=== PATIENT | male | born 1945 | race Caucasian/White ===

== ENCOUNTER 2017-03-24 19:37 | Emergency (ER) | payer MEDICARE ==
[~2017-03-24] VITALS: Ht 154.9 cm; Wt 65.9 kg
[~2017-03-24 19:37] MED LIST: GLBR5T PO; LISI40TA PO; METF10002 PO
[2017-03-24 19:53] VITALS: BP 159/87; PULSE 93; RESP 20; O2SAT 97
--- NOTE | 2017-03-24 20:45 | DRSVH ---
PROCEDURE: X-RAY LEFT KNEE, THREE VIEWS ([id number]) INDICATIONS: glf 3 weeks ago TECHNIQUE: 4 views of the knee were acquired. COMPARISON: [facility], , KNEE 3VW (LT), 11/05/2008, 19:56. FINDINGS: Bones: No fractures or dislocations. No suspicious bony lesions. Osteophyte in tibial tubercle. Soft tissues: No joint effusion. No suspicious soft tissue calcifications. IMPRESSION: No fracture or dislocation. Dictated by: Noam Mendiola M.D. on 03/24/2017 at 20:43 Approved by: Noam Mendiola M.D. on 03/24/2017 at 20:44
--- NOTE | 2017-03-24 22:41 | ED.REPORT ---
HPI-Extremity Problem Lower Date of Service Mar 24, 2017 ED Provider: Dr. Lee 71 y/o male on Aspirin and with a hx of Charcot foot, type 2 DM, hypertension and hyperlipidemia presents to the ED complaining of left foot injury, onset 3 weeks ago. His pain is primarily around the ankle. The pt fell off his scooter onto the grass and twisted both his knee and foot at the same time. His scooter then fell on the pt's left foot. He denies any change in sensation from baseline in the left foot. Nursing Notes Stated Complaint: FOOT/LEG PAIN FROM FALL 3 WEEKS AGO Chief Complaint: Extremity Trauma Nursing Notes Reviewed: Yes Allergies: Coded Allergies: Penicillins (Verified Allergy, Severe, HIVES, 03/24/17) HIVES Scheduled Glyburide (Glyburide) 5 Mg Tab 5 MG PO BIDAC Lisinopril (Lisinopril) 40 Mg Tablet 40 MG PO DAILY Metformin (Metformin) 1,000 Mg Tablet 1,000 MG PO BIDWM Scheduled PRN Naproxen (Naprosyn) 500 Mg Tablet 500 MG PO BID PRN PRN For Pain General Time Seen by MD: 22:41 Chief Complaint Foot injury left Hx Obtained From: Patient Arrived By: Walk-in Onset Occurred: More than a week ago... (3 weeks) Symptom Duration: Since onset Location: : Foot left Quality: Painful Severity: Current: Mild Severity: Maximum: Moderate Recent Healthcare: No recent doctor visit Similar Sx Previous: No Past Medical History Past Medical History Spinal surgery chronic leg weakness since teenage years - Charcot foot Diabetes Mellitus Hypertension Hyperlipidemia Past Surgical History Spinal surgery age 18, left hip Reports: Cholecystectomy Family History Noncontributory Smoking History Never Smoker Social History Alcohol Use: In recovery Drug Use: Denies drug use Other Social History: Occupation lives with Ambulatory Status Independent Review of Systems Denies: change in sensation in left foot Musculoskeletal: Reports: Extremity pain (left foot), Joint pain (left knee) Complete sys rev & neg: except as marked. Physical Exam Initial Vital Signs Vital Signs (First) Date Time Temp Pulse Resp B/P Pulse Ox O2 Delivery O2 Flow Rate FiO2 03/24/17 19:53 37.0 93 20 159/87 97 Room Air Initial VS: Reviewed, Vital signs normal Head / Eyes: Atraumatic, Normocephalic Neck: Supple, Non-tender, Full range of motion Respiratory: Breath sounds normal, No respiratory distress Cardiovascular: Regular rate & rhythm, Heart sounds normal, Intact distal pulses Upper Extremities: Vascular intact, Neuro intact, No swelling, No tenderness Skin: Warm, Dry, No cyanosis Neurologic: Alert, Oriented, Nonfocal Lower Extremity / Pelvis / MS: Atraumatic, Full range of motion, No swelling, Neurologic intact, Vascular intact Ankle / Foot: Atraumatic, Full range of motion, Neurologic intact, Vascular intact Charcot left foot General/Constitutional: Awake, Alert, No acute distress, Cooperative Interpretation & Diagnostics X-Ray Interpretation Xray Interpretation: IMPRESSION: No fracture or dislocation. Dictated by: Noam Mendiola M.D. on 03/24/2017 at 20:43 Approved by: Noam Mendiola M.D. on 03/24/2017 at 20:44 X-Ray Ordered: Knee left Interpretation / Wet Read by: Interpret - Radiologist Xray Interpretation: Vascular calcifications No acute bony injury of the foot X-Ray Ordered: Foot left Interpretation / Wet Read by: Dominique read ED physician Xray Interpretation: No acute bony injury of the ankle X-Ray Ordered: Ankle left Interpretation / Wet Read by: Dominique fontana ED physician Re-Eval/Medical Decision Med Decision/Clinical Course 71-year-old with chronic denervation injury and deformity of the left foot, presents with knee strain and pain in the foot after his scooter fell on him after he fell off the scooter. No bony injury is revealed on x-ray. No visible deformity beyond his baseline. Placed in an Jesus wrap for comfort and discharged now with Naprosyn and follow up with PCP. Source of Hx: Old records Re-Evaluation/Progress : Time of Eval: 23:33 Re-Evaluation/Progress Note: Rechecked pt. Discussed imaging results, diagnosis and plan to discharge. Pt understands and agrees with the plan. F/U instructions and RTER warning given. All questions addressed. Counseled Regarding: Diagnosis, Need for follow-up, When/why to return to ED Discharge & Departure Impression: Primary Impression: Contusion, foot Encounter type: initial encounter Laterality: left Qualified Code: S90.32XA - Contusion of left foot, initial encounter Additional Impression: Knee sprain Encounter type: initial encounter Involved ligament of knee: unspecified ligament Laterality: left Qualified Code: S83.92XA - Sprain of unspecified site of left knee, initial encounter Disposition: Home Discharge Condition All VS Reviewed: Yes Condition: Stable Patient Instructions: Foot Contusion (ED), Knee Sprain (ED) Additional Instructions: Your X-rays show no fracture. Your ankle was wrapped with an jesus. Wear the Jesus wrap when up and around. Remove it to sleep. Loosen the Jesus wrap if it feels too tight, and if you develop numbness or tingling or cold foot. Take the Naprosyn pain medication twice daily. Always take it with some food in your stomach. Referrals: Braxton Obrien MD (PCP) Scribe Attestation Portions of this note were transcribed by Mhain Peter. I, , personally performed the history, physical exam and medical decision- making;I reviewed and confirmed the accuracy of the information in the transcribed note. Signed by Sami Villaseñor. 03/25/17 00:05 copies to: Braxton Obrien MD, Christopher W MD Mar 24, 2017 22:41 Mahin Peter Mar 24, 2017 22:50
[2017-03-24] MEDS ORDERED: NAPR500T PO (23:40)
[2017-03-24 23:55] VITALS: BP 140/82; PULSE 72; RESP 18; O2SAT 99
--- NOTE | 2017-03-25 08:03 | DRSVH ---
PROCEDURE: X-RAY LEFT FOOT COMPLETE, MINIMUM THREE VIEWS ([id number]) INDICATIONS: fall, crush injury, TECHNIQUE: 3 views of the foot were acquired. COMPARISON: None. FINDINGS: Bones: Osteopenia. Chronic appearing deformity of the calcaneus with no acute displaced fractures at this site or in the remaining left foot. Midfoot interphalangeal joint degenerative change. Subluxati on of the fourth and fifth MTP joints. Soft tissues: No tibiotalar joint effusion. Achilles tendon appears normal. Vascular calcification s. IMPRESSION: 1. Chronic appearing calcaneal deformity. Sensitivity for fracture is limited given osteopenia. If th ere is persistent concern for a calcaneal fracture recommend CT or MRI. 2. Osteopenia referral Dictated by: Jasvir Cox M.D. on 03/25/2017 at 7:58 Approved by: Jasvir Cox M.D. on 03/25/2017 at 8:01
--- NOTE | 2017-03-25 08:16 | DRSVH ---
PROCEDURE: X-RAY LEFT ANKLE, TWO VIEWS ([id number]) INDICATIONS: fall, crush injury, TECHNIQUE: 2 views of the ankle were acquired. COMPARISON: None. FINDINGS: Bones: Chronic appearing calcaneal deformity with no radiographic evidence of displaced fracture. The left ankle mortise is intact. Normal alignment. Osteopenia. Soft tissues: No tibiotalar joint effusion. Achilles tendon appears normal. Vascular calcification s IMPRESSION: 1. Chronic appearing calcaneal deformity with no radiographic evidence of displaced fracture. If ther e is persistent clinical concern for fracture recommend a noncontrast CT. 2. Given the patient's osteopenia recommend further evaluation with DEXA or referral to a fracture ri sk clinic on a nonemergent basis. Dictated by: Jasvir Cox M.D. on 03/25/2017 at 8:01 Approved by: Jasvir Cox M.D. on 03/25/2017 at 8:14
== END 2017-03-24 23:56 | disposition home or self-care (01) ==
LOC: SED 19:37
DX: S90.32XA Contusion of left foot, initial encounter (principal); S83.92XA Sprain of unspecified site of left knee, initial encounter; V00.141A Fall from scooter (nonmotorized), initial encounter; Y93.89 Activity, other specified; Y92.89 Other specified places as the place of occurrence of the external cause; Y99.9 Unspecified external cause status; E78.5 Hyperlipidemia, unspecified; I10 Essential (primary) hypertension; E11.9 Type 2 diabetes mellitus without complications; Z79.84 Long term (current) use of oral hypoglycemic drugs; Z79.899 Other long term (current) drug therapy; Z88.0 Allergy status to penicillin